=== PATIENT | female | born 1945 | race Caucasian/White ===

== ENCOUNTER 2023-08-29 22:45 | Emergency (ER) | payer MEDICARE, OTHER, SELFPAY ==
[2023-08-29 22:55] VITALS: BP 163/79
[2023-08-29 23:37] LABS: % Basophils 0.6 % (0-2); % Eosinophils 3.4 % (0-6); % Immature Granulocytes 0.3 % (0-0.5); % Lymphocytes 46.8 % (20.5-51.1); % Monocytes 6.8 % (1.7-9.3); % Neutrophils 42.1 % (42.2-75.2); Absolute Eosinophils 0.2 10^3/uL (0-0.7); Absolute Lymphocytes 3.3 10^3/uL (1.2-3.4); Absolute Monocytes 0.5 10^3/uL (0.1-0.6); Mean Corp Hgb Conc. 35.1 g/dL (33.0-37.0); Mean Corpuscular Hgb 33.1 pg (27.0-31.0); Mean Corpuscular Volume 94.1 fL (81.0-99.0); Nucleated Red Blood Cells % 0 %; Platelet Count 251 10^3/uL (130-400); Red Blood Cell Count 3.93 10^6/uL (4.20-5.40); Red Cell Dist. Width 13.5 % (11.5-14.5); White Blood Cell Count 7.1 10^3/uL (4.8-10.8)
[2023-08-29 23:51] VITALS: BP 152/67
[2023-08-29 23:52] LABS: ALT (SGPT) 13 U/L (0-35); AST (SGOT) 24 U/L (14-36); Albumin 4.2 g/dl (3.5-5.0); Alkaline Phosphatase 96 U/L (38-126); Blood Urea Nitrogen 18 mg/dl (7-17); Calcium 8.8 mg/dl (8.4-10.2); Carbon Dioxide 24 mmol/L (22-30); Chloride 104 mmol/L (98-107); Glucose 99 mg/dl (70-99); Potassium 4.1 mmol/L (3.5-5.1); Sodium 134 mmol/L (135-145); Total Bilirubin 0.6 mg/dl (0.2-1.3); eGFR > 60.00
[2023-08-30] VITALS: BP 164/60
[2023-08-30] LABS: Troponin I < 0.012 ng/ml
[2023-08-30 00:22] LABS: TSH Reflex To Free T4 5.16 uIU/ml (0.47-4.68)
[2023-08-30 00:51] LABS: Free T4 1.08 ng/dl (0.78-2.19)
--- NOTE | 2023-08-30 00:51 | ED.GENMED ---
History of Present Illness
<MARIE Harper - Last Filed: 08/30/23 05:11>
General
Chief Complaint: Heart Rate Problem
Source: patient
Exam Limitations: none
Time Seen by Provider: 08/30/23 00:34
Nursing documentation reviewed up to this point in time: agreed with
Travel History
Have you had any contact with someone who has COVID-19?: No
Do you have any symptoms of coronavirus? Fever > 100 degrees, chills, cough, shortness of breath, sore throat, loss of taste or smell, muscle aches, or headache?: No
History of Present Illness
History of Present Illness:
This is a 78 year old female with a PMH of HTN, who presents to the ED c/o palpitations x 30 mins. Pt states she was sitting down when she began to feel lightheaded and like her heart was racing. She states the feeling lasted for about 30 mins
before resolving. Pt states she had a similar episode 1 month ago but it resolved within 10 minutes and she did not seek evaluation for it. Pt also adds that she has had a very dry mouth today and she has had to urinate 3 times since she arrived at
the hospital. Pt notes she felt okay otherwise during the day and had 1 glass of wine before dinner around 7 hours ago. She denies any CP, SOB, CAMPBELL, nausea, vomiting, syncope, dysuria, hematuria, diarrhea, or constipation.
Pt drinks alcohol socially, she is a former smoker, and she denies any drug use. Pt does state that she has had increased caffeine intake today.
Past History
<MARIE Harper - Last Filed: 08/30/23 05:11>
Past History
ED Past Medical History: HTN
Social History
Tobacco: Former smoker
Alcohol: Occasional
Drug: None
Personal:
Living: with family
Family History
Family History: CAD (parents)
Review of Systems
<MARIE Harper - Last Filed: 08/30/23 05:11>
Review of Systems
Allergies reviewed?: Yes
All Other Systems: ROS reviewed and negative except as documented in HPI and ROS
Constitutional: Reports no symptoms; Denies fever
EENT: Reports other (dry mouth)
Respiratory: Reports no symptoms; Denies trouble breathing
Cardiac: Reports palpitations; Denies chest pain or syncope
ABD/GI: Reports no symptoms; Denies nausea or vomiting
: Reports frequency; Denies dysuria or bleeding
Musculoskeletal: Reports no symptoms
Skin: Reports no symptoms
Neurological: Reports other (lightheaded); Denies dizzy or headache
Psychiatric: Reports no symptoms
Phy Exam
<Bryan Toledo [facility] - Last Filed: 08/30/23 05:11>
General Physical Exam
General Presentation: no apparent distress
General age: appears stated age
General Skin: warm and dry
General Habitus: elderly
General Mental: alert
General Hydration: dry mucous membranes
ENT Exam
ENT Exam: EOMI, pharynx normal, normocephalic and swallowing well
Eye Exam
Eye Exam: PERRL and EOMI
Cardiovascular Exam
Cardiovascular Exam: regular rate/rhythm, no edema, no murmur and normal peripheral pulses
Heart Sounds: normal
Pulmonary Exam
Pulmonary Exam: lungs clear, no respiratory distress, no rales, no crackles, no rhonchi, no wheezing and no cough
Gastrointestinal Exam
Gastrointestinal Exam: normal bowel sounds, non tender, soft and non distended
Neurological Exam
Neurological Exam: alert, oriented x3, speech normal and normal gait
Musculoskeletal Exam
Musculoskeletal Exam: full ROM and no edema
Skin Exam
Skin Exam: normal color and warm/dry
Psychiatric Exam
Psychiatric Exam: normal mood/affect
Course
<Bryan Toledo [facility] - Last Filed: 08/30/23 05:11>
Orders/Labs/Results
Orders:
Orders
08/29/23 22:46
Electrocardiogram (*1) Urgent
Reason for Study: Tachycardia
EKG- Treatment ONCE
08/29/23 23:30
Complete Blood Count/With Diff Urgent
Comprehensive Metabolic Panel Urgent
Free T4 Urgent
TSH Reflex To Free T4 Urgent
Troponin I Urgent
08/30/23 01:26
Urinalysis Reflex To Culture Urgent
Date Specimen was Collected: 08/30/23
Time Specimen was Collected: 01:25
Abnormal Lab Results
08/29/23
23:30
RBC 3.93 L 10^6/uL
(4.20-5.40)
MCH 33.1 H pg
(27.0-31.0)
Neutrophils % 42.1 L %
(42.2-75.2)
Sodium 134 L mmol/L
(135-145)
BUN 18 H mg/dl
(7-17)
Creatinine 0.5 L mg/dL
(0.6-1.0)
TSH (Reflex) 5.16 H uIU/ml
(0.47-4.68)
08/29/23 23:30
08/29/23 23:30
Vital Signs
Initial and Last Documented VS:
Initial Vital Signs
Temp Pulse BP Pulse Ox
98.1 F 94 163/79 99
08/29/23 22:55 08/29/23 22:55 08/29/23 22:55 08/29/23 22:55
Last Documented Vital Signs
Temp Pulse Resp BP Pulse Ox
98.1 F 72 12 151/73 95
08/29/23 22:55 08/30/23 01:58 08/30/23 01:58 08/30/23 02:02 08/30/23 02:03
<Steven Logan, DO - Last Filed: 08/30/23 01:57>
Orders/Labs/Results
Orders:
Orders
08/29/23 22:46
Electrocardiogram (*1) Urgent
Reason for Study: Tachycardia
EKG- Treatment ONCE
08/29/23 23:30
Complete Blood Count/With Diff Urgent
Comprehensive Metabolic Panel Urgent
Free T4 Urgent
TSH Reflex To Free T4 Urgent
Troponin I Urgent
08/30/23 01:26
Urinalysis Reflex To Culture Urgent
Date Specimen was Collected: 08/30/23
Time Specimen was Collected: 01:25
Abnormal Lab Results
08/29/23
23:30
RBC 3.93 L 10^6/uL
(4.20-5.40)
MCH 33.1 H pg
(27.0-31.0)
Neutrophils % 42.1 L %
(42.2-75.2)
Sodium 134 L mmol/L
(135-145)
BUN 18 H mg/dl
(7-17)
Creatinine 0.5 L mg/dL
(0.6-1.0)
TSH (Reflex) 5.16 H uIU/ml
(0.47-4.68)
08/29/23 23:30
08/29/23 23:30
Vital Signs
Initial and Last Documented VS:
Initial Vital Signs
Temp Pulse BP Pulse Ox
98.1 F 94 163/79 99
08/29/23 22:55 08/29/23 22:55 08/29/23 22:55 08/29/23 22:55
Last Documented Vital Signs
Temp Pulse Resp BP Pulse Ox
98.1 F 72 12 151/73 95
08/29/23 22:55 08/30/23 01:58 08/30/23 01:58 08/30/23 02:02 08/30/23 02:03
<MARIE Harper - Last Filed: 08/30/23 05:11>
*Critical Care Note
Total Time (30-74mins, 75-104mins- exclusive of procedures): Not Applicable
ED Attending Note
<MARIE Harper - Last Filed: 08/30/23 05:11>
-
Portions of this chart may have been created with voice recognition software.� Occasional wrong word or��sound alike� substitutions may have occurred due to the inherent limitations of voice recognition software.
<Steven Logan DO - Last Filed: 08/30/23 01:57>
ED Attending Note
Patient seen and examined by attending physician: Yes
I performed the substantive portion of visit, reviewed & personally made and approve the management plan that is documented in note by myself or EFRAÍN.: Yes
ED Attending Note:
I have seen and evaluated the patient with a [id number] encounter. I have spoken to the advance practicer provider and involved in the medical history, the physical exam, medical decision making.
Evaluation and management service: agree unless noted differently below.
Results interpretation: agree unless noted differently below.
Focused HPI: 78-year-old female presenting with resolved palpitation. This occurred prior to arrival and lasted 20 to 30 minutes. Patient felt her heart beating fast and she measured it in the 120s. On arrival, symptoms resolved. She has a
history of PVCs but states this felt different. When questioned whether or not she had any increased caffeine or different food today, patient does acknowledge that she had more salt intake today and more caffeine than usual. She states she ate
dark chocolate just before the palpitations occurred
Physical exam: Sitting in bed comfortably. Mildly dry mucous membranes. Heart regular rate and rhythm
Medical Decision Making: We discussed the possibility of resolved A-fib. We discussed follow-up with her PCP and wastewater superintendent as discussed Holter monitor. Because patient complaining of increased urination (patient consciously drinking more water
in the emergency department), will obtain urinalysis
Discharge Plan
Departure
Patient Disposition: Home (Routine Discharge)
Date of Disposition: 08/30/23
Time of Disposition: 01:57
Patient with high blood pressure during this ER visit?: Yes
Discharge Problem:
Palpitations
Instructions: Palpitations (DC), BLOOD PRESSURE
Prescriptions:
No Action
Lisinopril
2.5 mg PO DAILY
Referrals:
Cristina Gonzalez PA-C [Family Provider] -
Activity Restrictions/Additional Instructions:
Please return for any worsening symptoms.
You may return at any time if you have further concerns.
Please follow up with your primary care doctor and wastewater superintendent at the first available appointment, preferably this week. Please discuss your palpitations and obtaining a Holter monitor.
Thank you for choosing [facility].
Interventions
Interventions:
*Risk Screen - Suicide Last Done: 08/29/23 22:55
*General Assessment Last Done: 08/29/23 22:55
*Neglect/Abuse Screening Last Done: 08/29/23 22:55
ED- Fall Risk Assessment Last Done: 08/29/23 22:55
*ED COVID-19 Vaccine History Last Done: 08/29/23 22:55
*Nursing Disposition Last Done: 08/30/23 02:10
ED- Cardiac Assessment Last Done: 08/29/23 23:51
ED- Pulmonary Assessment Last Done: 08/29/23 23:51
Discharge Date and Time
Discharge Date/Time: 08/30/23 02:05
[2023-08-30 01:00] VITALS: BP 157/68
[2023-08-30 01:34] LABS: Urine Albumin Negative (Neg - Trace); Urine Bilirubin Negative (Negative); Urine Character Clear (Clear); Urine Color Straw; Urine Glucose Negative (Negative); Urine Ketone Negative (Negative); Urine Leukocyte Negative (Negative); Urine Nitrite Negative (Negative); Urine Occult Blood Negative (Negative); Urine Urobilinogen Negative (Neg - 1+)
[2023-08-30 02:02] VITALS: BP 151/73
== END 2023-08-30 02:05 | disposition home or self-care (01) ==
LOC: EMR 22:45
PROVIDERS: EMERGENCY PHYSICIAN Student in an Organized Health Care Education/Training Program; FAMILY PHYSICIAN Physician Assistant Medical
DX: R00.2 Palpitations (principal); R42 Dizziness and giddiness; R68.2 Dry mouth, unspecified; I10 Essential (primary) hypertension; Z87.891 Personal history of nicotine dependence
CPT/HCPCS: 99284; 80053; 81003; 84439; 84443; 84484; 85025; 93005

== ENCOUNTER → 2023-09-16 09:22 | Outpatient (REF) | payer MEDICARE, OTHER, SELFPAY | LOC: RCS 09:22 | PROVIDERS: ATTENDING PHYSICIAN Nurse Practitioner Gerontology; FAMILY PHYSICIAN Physician Assistant Medical | DX: R00.2 Palpitations (principal) | CPT/HCPCS: 93225; 93226 ==